=== PATIENT | male | born 2000 | race Hispanic/Latino ===

== ENCOUNTER 2023-03-12 21:58 | Emergency (ER) | payer OTHER, SELFPAY ==
[2023-03-12 22:36] VITALS: BP 116/54; PULSE 73; RESP 16; TEMP 36.4; O2SAT 98; BMI 29.2
[2023-03-12 23:29] LABS: Influenza A - CEPHEID Flu A NEGATIVE (NEGATIVE); Influenza B - CEPHEID Flu B NEGATIVE (NEGATIVE); Respiratory Syncytial Virus Negative (Negative)
[2023-03-12 23:35] LABS: COVID-19 CEPHEID 4-PLEX PCR Negative (Negative)
--- NOTE | 2023-03-13 05:06 | PC.NURSE ---
pt awakened and brought to rm 3 with no change from triage assessment
[2023-03-13 05:10] VITALS: BP 136/68; PULSE 76; RESP 20; TEMP 37; O2SAT 100
--- NOTE | 2023-03-13 05:33 | ED.URI ---
HPI - URI/Sore Throat General Chief Complaint: Upper Respiratory Symptoms Stated Complaint: Cough, Time Seen by Provider: 03/13/23 05:25 Source: patient Mode of arrival: Ambulatory History of Present Illness HPI Narrative: Patient is a healthy 22-year-old male who presents with a tickle in the back of his throat ongoing for a month and a half. He reports that when he lays down he coughs. He has had a cough off and on for half. No fever chills. No sore throat. He did travel to [facility] a month and a half ago. He denies any shortness of breath or chest pain. No abdominal pain nausea or vomiting. He is some nasal congestion. He does sleep better when he is elevated. He really has not tried any sort of [id number]-[id number]-vohmtcy medication or cough drops. He did try Robitussin but that was it he had no relief. Related Data Allergies Allergy/AdvReac Type Severity Reaction Status Date / Time No Known Drug Allergies Allergy Verified 03/12/23 22:36 Patient History Social History Smoking Status: Former smoker Smoking Status: Former smoker tobacco type: vaping alcohol intake frequency: a few times a week Substance Use Type: does not use Exam Initial Vital Signs Initial Vital Signs: Vital Signs Temperature 97.5 F L 03/12/23 22:36 Pulse Rate 73 03/12/23 22:36 Respiratory Rate 16 03/12/23 22:36 Blood Pressure 116/54 L 03/12/23 22:36 Pulse Oximetry 98 03/12/23 22:36 Oxygen Delivery Method Room Air 03/12/23 22:36 GENERAL: Alert 22-year-old male and in no acute distress. HEENT: Head atraumatic,EOMI, pupils reactive, face symmetric, moist mucous membranes CARDIOVASCULAR: Regular rate and rhythm without murmurs, rubs or gallops. RESPIRATORY: Breath sounds equal bilaterally, no wheezes rales or rhonchi. ABDOMEN: Soft, nontender. Normoactive bowel sounds all 4 quadrants. No guarding or rebound. EXTREMITIES: Normal range of motion, no clubbing or edema. Neurovascularly intact NEUROLOGICAL: Alert and oriented x4 SKIN: Warm, dry, no laceration, no petechiae, no rashes or lesions. Course Orders Ordered: ED Orders 03/12/23 22:42 Covid-19 + FLU A/B + RSV - PCR Stat Vital Signs Vital signs: Vital Signs - 8 hr 03/12/23 22:36 03/13/23 05:10 Temperature 97.5 F L 98.6 F Pulse Rate 73 76 Respiratory Rate 16 20 Blood Pressure 116/54 L 136/68 Pulse Oximetry 98 100 Oxygen Delivery Method Room Air Room Air MDM - URI/Sore Throat Lab Data Labs: Lab Results 03/12/23 Range/Units 22:42 SARS-CoV-2 (PCR) Negative (Negative) Influenza A (RT-PCR) Flu a negative (NEGATIVE) Influenza B (RT-PCR) Flu b negative (NEGATIVE) RSV (PCR) Negative (Negative) MDM Narrative Medical decision making narrative: Patient well-appearing 22-year-old male who presents with a tickle in the back of his throat ongoing for a month. He does have some nasal congestion as well. No obvious shortness of breath. It just does not really seem to be going away. I suspect upper respiratory like infection. Viral panel today is negative. Lung sounds are clear no need for any further testing or antibiotics. Recommend supportive care only. Though he has a had recent travel to [facility] very low suspicion for pulmonary embolism. Discharge Plan Departure Patient Disposition: Home Clinical Impression: Upper respiratory infection Instructions: Common Cold, DI for Viral Upper Respiratory Infection -- Adult Activity Restrictions/Additional Instructions: *You have been diagnosed with upper respiratory infection *What to do: At this time viral panel is negative for COVID influenza and RSV. Lung sounds are clear. No need for antibiotics *Continue to take medications as directed May try Benadryl at night to help dry you up and help you sleep May try allergy medication such as Claritin or Rosaura during the day May also try [id number] Mucinex Cough drops *Follow up with your primary care provider in 2-3 days or call [phone] *Return to ER if you should have increasing chest pain shortness of breath or any new, worsening or concerning symptoms Stand Alone Forms: Patient Portal/API
== END 2023-03-13 05:40 | disposition home or self-care (01) ==
PROVIDERS: Emergency Provider Emergency Medicine
DX: J06.9 Acute upper respiratory infection, unspecified (principal); Z20.822 Contact with and (suspected) exposure to COVID-19
CPT/HCPCS: 0241U; 99281; 99282